=== PATIENT | male | born 1995 | race Two or more races ===

== ENCOUNTER 2022-11-15 22:45 | Emergency (ER) | payer MEDICAID, OTHER ==
[~2022-11-15] VITALS: Ht 162.6 cm; Wt 83.9 kg
[2022-11-15] MEDS ORDERED: ACETAMINOPHEN ES 500 MG TABLET ONE (23:57)
[2022-11-15] MEDS ORDERED: TDAP [DIPH/PERTUSSIS/TET] 0.5 ML VIAL IM ONE (23:57)
[2022-11-16] MEDS ORDERED: LIDOCAINE 5% (PATCH) 1 EA PATCH TP SCH
[2022-11-16] MEDS ORDERED: ACETAMINOPHEN ES 500 MG TABLET PO ONE
[2022-11-16] MEDS ORDERED: TDAP [DIPH/PERTUSSIS/TET] 0.5 ML VIAL IM ONE
--- NOTE | 2022-11-16 01:54 | NUR ---
Patient discharged in custody in stable condition. Written and verbal after care instructions given to lapd. Patient verbalizes understanding of instruction.
[2022-11-16 02:26] VITALS: BP 154/68
== END 2022-11-16 02:26 ==
LOC: ER 22:48
DX: S01.81XA Laceration without foreign body of other part of head, initial encounter (principal); Y04.0XXA Assault by unarmed brawl or fight, initial encounter; Y93.89 Activity, other specified; Y92.89 Other specified places as the place of occurrence of the external cause; Y99.8 Other external cause status
CPT/HCPCS: 70450-TC; 71046; 90715